=== PATIENT | female | born 1990 | race Hispanic/Latino ===

== ENCOUNTER 2024-10-21 22:33 | Emergency (ER) | payer SELFPAY ==
[2024-10-21] MEDS ORDERED: Dexamethasone 10 MG/ML VIAL ONE (23:56)
== END 2024-10-22 02:01 | disposition home or self-care (01) ==
LOC: ERS 22:33
DX: J02.9 Acute pharyngitis, unspecified (principal); F17.210 Nicotine dependence, cigarettes, uncomplicated
CPT/HCPCS: 87081; 87428; 87430; 99282; J1100